=== PATIENT | male | born 1960 | race Caucasian/White ===

== ENCOUNTER 2018-08-11 14:44 | Inpatient (IN) | payer OTHER ==
[2018-08-11 16:29] LABS: ADD MAN DIFF? NO
[2018-08-11 16:35] LABS: BASOPHILS % 0.5 % (0.0-2.0); EOSINOPHILS # 0.2 10^3/ul (0.0-0.5); EOSINOPHILS % 2.1 % (0.0-7.0); HEMATOCRIT 22.6 % (42.0-52.0); LYMPHOCYTES # 2.8 10^3/ul (0.8-2.9); MEAN PLATELET VOLUME 10.1 fl (7.4-10.4); MONOCYTE # 0.4 10^3/ul (0.3-0.9); MONOCYTES % 5.8 % (0.0-11.0); NEUTROPHIL # 3.9 10^3/ul (1.6-7.5); NEUTROPHILS % 52.7 % (39.0-77.0); NUCLEATED RED BLOOD CELLS # 0.1 10^3/ul (0.0-0.0); NUCLEATED RED BLOOD CELLS% 0.7 /100WBC (0.0-0.0); PLATELET COUNT 214 10^3/UL (140-415); RED BLOOD COUNT 2.69 10^6/ul (4.70-6.10); RED CELL DISTRIBUTION WIDTH 16.7 % (11.5-14.5)
[2018-08-11 16:35] LABS: WHITE BLOOD COUNT 7.5 10^3/ul (4.8-10.8)
[2018-08-11 16:52] LABS: ANION GAP 11 (5-13); BLOOD UREA NITROGEN 9 mg/dl (7-20); CALCIUM 9.4 mg/dl (8.4-10.2); CARBON DIOXIDE 24 mmol/L (21-31); CHLORIDE 106 mmol/L (97-110); CREATININE 0.69 mg/dl (0.61-1.24); Estimated GFR > 60 mL/min (>60); GLUCOSE 99 mg/dl (70-220); POTASSIUM 3.3 mmol/L (3.5-5.1); SODIUM 141 mmol/L (135-144)
[2018-08-11 16:55] LABS: INR 0.86; PARTIAL THROMBOPLASTIN TIME 25.2 Sec (23.0-35.0); PROTIME 11.8 Sec (11.9-14.9); PT RATIO 0.9
[2018-08-11] MEDS: ASPIRIN 325 MG TAB PO (16:57)
[2018-08-11] MEDS: NITROGLYCERIN 2% 1 GM OINT PKT TD (16:58)
[2018-08-11 17:04] LABS: B-TYPE NATRIURETIC PEPTIDE 46 PG/ML (0-125); TROPONIN-I < 0.012 ng/ml (0.000-0.120)
[2018-08-11] MEDS: POTASSIUM CHLORIDE (SR) 20 MEQ TAB PO (17:37)
[2018-08-11] MEDS: SOD CHLORIDE 0.9% 250 ML IV* (18:53)
[2018-08-11 19:00] LABS: IRON 19 ug/dl (35-150)
[2018-08-11] MEDS ORDERED: NACL 0.9% 3 ML SYG IV (19:00)
[2018-08-11] MEDS ORDERED: ONDANSETRON 4 MG INJ IV (19:00)
[2018-08-11] MEDS ORDERED: ACETAMINOPHEN 325 MG TAB PO (19:00)
[2018-08-11 19:09] LABS: % IRON SATURATION 4 % SAT (22-52); TOTAL IRON BINDING CAPACITY 476 ug/dl (241-421)
[2018-08-11 19:44] LABS: FERRITIN 5.7 ng/ml (11.1-264.0)
[2018-08-11 20:14] LABS: FOLATE 5.2 ng/ml (2.8-20.0)
[2018-08-11] MEDS: NICOTINE (21 MG/24 HR) PATCH TRANSDERM (21:30)
[2018-08-11] MEDS: METOPROLOL 25 MG TAB PO (21:30)
[2018-08-11 22:38] LABS: CREATINE KINASE < 20 IU/L (23-200)
[2018-08-11 22:49] LABS: CK-MB < 0.22 ng/ml (0.0-2.4); TROPONIN-I < 0.012 ng/ml (0.000-0.120)
[2018-08-12] MEDS: PANTOPRAZOLE (EC) 40 MG TAB PO (05:30)
[2018-08-12] MEDS: PRASUGREL HYDROCHLORIDE 10 MG TABLET PO (08:32)
[2018-08-12] MEDS: ASPIRIN 81 MG TAB PO (08:32)
[2018-08-12] MEDS: NICOTINE (21 MG/24 HR) PATCH TRANSDERM (08:32)
[2018-08-12] MEDS: METOPROLOL 25 MG TAB PO ×2 (08:33→20:17)
[2018-08-12 08:59] LABS: ADD MAN DIFF? NO
[2018-08-12 09:01] LABS: WHITE BLOOD COUNT 7.6 10^3/ul (4.8-10.8)
[2018-08-12 09:01] LABS: BASOPHILS % 0.3 % (0.0-2.0); EOSINOPHILS # 0.2 10^3/ul (0.0-0.5); HEMATOCRIT 24.8 % (42.0-52.0); HEMOGLOBIN 7.7 g/dl (14.0-18.0); LYMPHOCYTES # 1.8 10^3/ul (0.8-2.9); LYMPHOCYTES % 23.7 % (15.0-51.0); MEAN CORPUSCULAR HEMOGLOBIN 26.5 pg (29.0-33.0); MEAN CORPUSCULAR VOLUME 85.2 fl (82.0-101.0); MONOCYTE # 0.4 10^3/ul (0.3-0.9); MONOCYTES % 5.4 % (0.0-11.0); NEUTROPHIL # 5.2 10^3/ul (1.6-7.5); NEUTROPHILS % 68.1 % (39.0-77.0); NUCLEATED RED BLOOD CELLS% 0.3 /100WBC (0.0-0.0); PLATELET COUNT 206 10^3/UL (140-415); RED BLOOD COUNT 2.91 10^6/ul (4.70-6.10); RED CELL DISTRIBUTION WIDTH 16.6 % (11.5-14.5)
[2018-08-12 09:32] LABS: ALANINE AMINOTRANSFERASE 22 IU/L (13-69); ALBUMIN 3.9 g/dl (3.3-4.9); ALKALINE PHOSPHATASE 63 IU/L (42-121); ANION GAP 4 (5-13); ASPARTATE AMINO TRANSFERASE 19 IU/L (15-46); BILIRUBIN,INDIRECT 0.3 mg/dl (0-1.1); BILIRUBIN,TOTAL 0.3 mg/dl (0.2-1.3); BLOOD UREA NITROGEN 8 mg/dl (7-20); CALCIUM 9.4 mg/dl (8.4-10.2); CARBON DIOXIDE 27 mmol/L (21-31); CHLORIDE 108 mmol/L (97-110); CHOL/HDL RATIO 3.6 RATIO; CHOLESTEROL 199 mg/dl (100-200); CREATININE 0.72 mg/dl (0.61-1.24); Estimated GFR > 60 mL/min (>60); GLUCOSE 96 mg/dl (70-220); HDL CHOLESTEROL 55 mg/dl (28-71); LDL CHOLESTEROL,CALCULATED 102 mg/dl; PHOSPHORUS 4.2 mg/dl (2.5-4.9); POTASSIUM 4.3 mmol/L (3.5-5.1); SODIUM 139 mmol/L (135-144); TOTAL PROTEIN 6.5 g/dl (6.1-8.1); TRIGLYCERIDES 209 mg/dl (0-149)
[2018-08-12 09:36] LABS: CREATINE KINASE < 20 IU/L (23-200)
[2018-08-12 09:38] LABS: CK-MB < 0.22 ng/ml (0.0-2.4); TROPONIN-I < 0.012 ng/ml (0.000-0.120)
[2018-08-12 10:31] LABS: HEMOGLOBIN A1C 5.1 % (0-5.9)
[2018-08-12] MEDS: SOD CHLORIDE 0.9% 250 ML IV* (11:36)
[2018-08-12 11:51] LABS: OCCULT BLOOD STOOL POSITIVE (NEGATIVE)
[2018-08-12 12:45] LABS: IMMEDIATE SPIN CROSSMATCH 1 2
[2018-08-12] MEDS: SOD FERRIC GLUC COMPLX 125 MG in SOD CHLORIDE 0.9% 100 ML IVPB (14:30)
[2018-08-12 14:46] LABS: TROPONIN-I < 0.012 ng/ml (0.000-0.120)
[2018-08-12 18:08] LABS: ADD MAN DIFF? NO
[2018-08-12 18:09] LABS: BASOPHILS % 0.4 % (0.0-2.0); EOSINOPHILS # 0.2 10^3/ul (0.0-0.5); HEMATOCRIT 27.1 % (42.0-52.0); HEMOGLOBIN 8.4 g/dl (14.0-18.0); LYMPHOCYTES # 2.1 10^3/ul (0.8-2.9); LYMPHOCYTES % 25.7 % (15.0-51.0); MEAN CORPUSCULAR HEMOGLOBIN 26.6 pg (29.0-33.0); MEAN CORPUSCULAR VOLUME 85.8 fl (82.0-101.0); MEAN PLATELET VOLUME 9.7 fl (7.4-10.4); MONOCYTE # 0.5 10^3/ul (0.3-0.9); MONOCYTES % 5.8 % (0.0-11.0); NEUTROPHIL # 5.3 10^3/ul (1.6-7.5); NEUTROPHILS % 65.7 % (39.0-77.0); NUCLEATED RED BLOOD CELLS% 0.2 /100WBC (0.0-0.0); PLATELET COUNT 193 10^3/UL (140-415); RED BLOOD COUNT 3.16 10^6/ul (4.70-6.10); RED CELL DISTRIBUTION WIDTH 15.9 % (11.5-14.5)
[2018-08-12 18:09] LABS: WHITE BLOOD COUNT 8.1 10^3/ul (4.8-10.8)
[2018-08-13] MEDS: PANTOPRAZOLE (EC) 40 MG TAB PO (05:35)
[2018-08-13 06:23] LABS: ADD MAN DIFF? NO
[2018-08-13 06:28] LABS: WHITE BLOOD COUNT 7.6 10^3/ul (4.8-10.8)
[2018-08-13 06:28] LABS: BASOPHILS % 0.3 % (0.0-2.0); EOSINOPHILS # 0.1 10^3/ul (0.0-0.5); EOSINOPHILS % 1.9 % (0.0-7.0); HEMATOCRIT 26.9 % (42.0-52.0); HEMOGLOBIN 8.5 g/dl (14.0-18.0); LYMPHOCYTES # 1.9 10^3/ul (0.8-2.9); MEAN CORPUSCULAR HEMOGLOBIN 26.9 pg (29.0-33.0); MEAN CORPUSCULAR HGB CONC 31.6 g/dl (32.0-37.0); MEAN CORPUSCULAR VOLUME 85.1 fl (82.0-101.0); MEAN PLATELET VOLUME 10.6 fl (7.4-10.4); MONOCYTE # 0.4 10^3/ul (0.3-0.9); MONOCYTES % 5.2 % (0.0-11.0); NEUTROPHIL # 5.1 10^3/ul (1.6-7.5); NEUTROPHILS % 67.1 % (39.0-77.0); NUCLEATED RED BLOOD CELLS% 0.3 /100WBC (0.0-0.0); PLATELET COUNT 191 10^3/UL (140-415); RED BLOOD COUNT 3.16 10^6/ul (4.70-6.10)
[2018-08-13 07:27] LABS: ANION GAP 5 (5-13); BLOOD UREA NITROGEN 7 mg/dl (7-20); CALCIUM 9.4 mg/dl (8.4-10.2); CARBON DIOXIDE 26 mmol/L (21-31); CHLORIDE 108 mmol/L (97-110); CREATININE 0.78 mg/dl (0.61-1.24); Estimated GFR > 60 mL/min (>60); GLUCOSE 96 mg/dl (70-220); MAGNESIUM 2.1 mg/dl (1.7-2.5); PHOSPHORUS 4.3 mg/dl (2.5-4.9); POTASSIUM 3.9 mmol/L (3.5-5.1); SODIUM 139 mmol/L (135-144)
[2018-08-13] MEDS: PRASUGREL HYDROCHLORIDE 10 MG TABLET PO (09:12)
[2018-08-13] MEDS: ASPIRIN 81 MG TAB PO (09:12)
[2018-08-13] MEDS: METOPROLOL 25 MG TAB PO ×2 (09:13→20:07)
[2018-08-13] MEDS: NICOTINE (21 MG/24 HR) PATCH TRANSDERM (09:14)
[2018-08-13] MEDS: REGADENOSON 0.4 MG/5 ML SYG (12:10)
[2018-08-13] MEDS: BISACODYL (EC) 5 MG TAB PO (16:35)
[2018-08-13] MEDS: MAGNESIUM CITRATE 300 ML BTL PO (17:34)
[2018-08-13] MEDS: POLYETHYLENE GLYCOL 3350 119 GM POWDER PO (18:21)
[2018-08-14] MEDS: PANTOPRAZOLE (EC) 40 MG TAB PO (05:06)
[2018-08-14] MEDS: POLYETHYLENE GLYCOL 3350 119 GM POWDER PO (05:06)
[2018-08-14 06:43] LABS: ADD MAN DIFF? NO
[2018-08-14 06:49] LABS: WHITE BLOOD COUNT 7.7 10^3/ul (4.8-10.8)
[2018-08-14 06:49] LABS: BASOPHILS % 0.4 % (0.0-2.0); EOSINOPHILS # 0.2 10^3/ul (0.0-0.5); EOSINOPHILS % 2.1 % (0.0-7.0); HEMATOCRIT 28.5 % (42.0-52.0); HEMOGLOBIN 8.8 g/dl (14.0-18.0); LYMPHOCYTES # 1.9 10^3/ul (0.8-2.9); LYMPHOCYTES % 24.2 % (15.0-51.0); MEAN CORPUSCULAR HEMOGLOBIN 26.3 pg (29.0-33.0); MEAN CORPUSCULAR HGB CONC 30.9 g/dl (32.0-37.0); MEAN CORPUSCULAR VOLUME 85.3 fl (82.0-101.0); MEAN PLATELET VOLUME 10.4 fl (7.4-10.4); MONOCYTE # 0.5 10^3/ul (0.3-0.9); MONOCYTES % 6.5 % (0.0-11.0); NEUTROPHIL # 5.1 10^3/ul (1.6-7.5); NEUTROPHILS % 66.3 % (39.0-77.0); PLATELET COUNT 191 10^3/UL (140-415); RED BLOOD COUNT 3.34 10^6/ul (4.70-6.10); RED CELL DISTRIBUTION WIDTH 16.3 % (11.5-14.5)
[2018-08-14 07:19] LABS: ANION GAP 8 (5-13); BLOOD UREA NITROGEN 8 mg/dl (7-20); CALCIUM 9.6 mg/dl (8.4-10.2); CARBON DIOXIDE 28 mmol/L (21-31); CHLORIDE 103 mmol/L (97-110); CREATININE 0.83 mg/dl (0.61-1.24); Estimated GFR > 60 mL/min (>60); GLUCOSE 87 mg/dl (70-220); POTASSIUM 4.1 mmol/L (3.5-5.1); SODIUM 139 mmol/L (135-144)
[2018-08-14] MEDS: BISACODYL (EC) 5 MG TAB PO (08:22)
[2018-08-14] MEDS: NICOTINE (21 MG/24 HR) PATCH TRANSDERM (08:25)
[2018-08-14] MEDS: METOPROLOL 25 MG TAB PO ×3 (09:00→20:31)
[2018-08-14] MEDS: ASPIRIN 81 MG TAB PO ×2 (09:00→13:32)
[2018-08-14] MEDS: PRASUGREL HYDROCHLORIDE 10 MG TABLET PO ×2 (09:00→13:32)
[2018-08-14] MEDS ORDERED: LIDOCAINE 2% (SDV) 5 ML INJ INJ (14:21)
[2018-08-14] MEDS: ATORVASTATIN 20 MG TAB PO (20:26)
[2018-08-15] MEDS: PANTOPRAZOLE (EC) 40 MG TAB PO (06:27)
[2018-08-15 07:22] LABS: ADD MAN DIFF? NO
[2018-08-15 07:24] LABS: WHITE BLOOD COUNT 8.3 10^3/ul (4.8-10.8)
[2018-08-15 07:24] LABS: BASOPHILS % 0.4 % (0.0-2.0); EOSINOPHILS # 0.1 10^3/ul (0.0-0.5); EOSINOPHILS % 1.5 % (0.0-7.0); HEMATOCRIT 29.1 % (42.0-52.0); LYMPHOCYTES # 1.7 10^3/ul (0.8-2.9); LYMPHOCYTES % 20.6 % (15.0-51.0); MEAN CORPUSCULAR HEMOGLOBIN 26.4 pg (29.0-33.0); MEAN CORPUSCULAR HGB CONC 30.9 g/dl (32.0-37.0); MEAN CORPUSCULAR VOLUME 85.3 fl (82.0-101.0); MEAN PLATELET VOLUME 10.5 fl (7.4-10.4); MONOCYTE # 0.5 10^3/ul (0.3-0.9); MONOCYTES % 6.3 % (0.0-11.0); NEUTROPHIL # 5.9 10^3/ul (1.6-7.5); NEUTROPHILS % 70.7 % (39.0-77.0); PLATELET COUNT 207 10^3/UL (140-415); RED BLOOD COUNT 3.41 10^6/ul (4.70-6.10); RED CELL DISTRIBUTION WIDTH 16.5 % (11.5-14.5)
[2018-08-15] MEDS: PROPOFOL 40 ML (07:43)
[2018-08-15 07:50] LABS: ANION GAP 5 (5-13); BLOOD UREA NITROGEN 11 mg/dl (7-20); CALCIUM 9.5 mg/dl (8.4-10.2); CARBON DIOXIDE 27 mmol/L (21-31); CHLORIDE 105 mmol/L (97-110); Estimated GFR > 60 mL/min (>60); GLUCOSE 99 mg/dl (70-220); MAGNESIUM 2.3 mg/dl (1.7-2.5); PHOSPHORUS 4.6 mg/dl (2.5-4.9); POTASSIUM 4.1 mmol/L (3.5-5.1); SODIUM 137 mmol/L (135-144)
[2018-08-15] MEDS: METOPROLOL 25 MG TAB PO (08:11)
[2018-08-15] MEDS: PRASUGREL HYDROCHLORIDE 10 MG TABLET PO (08:11)
[2018-08-15] MEDS: ASPIRIN 81 MG TAB PO (08:11)
[2018-08-15] MEDS: NICOTINE (21 MG/24 HR) PATCH TRANSDERM (09:32)
== END 2018-08-15 14:22 | disposition home or self-care (01) | DRG 313 ==
LOC: E/R 14:44 → TEL 17:50
PROC: 0DJ08ZZ Inspection of Upper Intestinal Tract, Via Natural or Artificial Opening Endoscopic (ICD-10-PCS; principal; 2018-08-14 15:00)
PROC: 0DBK8ZX Excision of Ascending Colon, Via Natural or Artificial Opening Endoscopic, Diagnostic (ICD-10-PCS; 2018-08-14 15:00)
PROC: 0DBN8ZX Excision of Sigmoid Colon, Via Natural or Artificial Opening Endoscopic, Diagnostic (ICD-10-PCS; 2018-08-14 15:00)
PROC: 30233N1 Transfusion of Nonautologous Red Blood Cells into Peripheral Vein, Percutaneous Approach (ICD-10-PCS; 2018-08-14 15:15)
DX: R07.2 Precordial pain (principal); D64.9 Anemia, unspecified; F17.200 Nicotine dependence, unspecified, uncomplicated; I25.2 Old myocardial infarction; Z95.5 Presence of coronary angioplasty implant and graft; R19.5 Other fecal abnormalities; I25.10 Atherosclerotic heart disease of native coronary artery without angina pectoris; E78.5 Hyperlipidemia, unspecified; K63.5 Polyp of colon; D12.2 Benign neoplasm of ascending colon; I10 Essential (primary) hypertension; E87.6 Hypokalemia; Z79.82 Long term (current) use of aspirin; Z79.02 Long term (current) use of antithrombotics/antiplatelets; K26.9 Duodenal ulcer, unspecified as acute or chronic, without hemorrhage or perforation; K29.70 Gastritis, unspecified, without bleeding
CPT/HCPCS: 36415; 36430; 71045; 78452; 80048; 80053; 80061; 82270; 82550; 82553; 82607; 82728; 82746; 83036; 83540; 83735; 83880; 84100; 84443; 84484; 85025; 85610; 85730; 86850; 86900; 86901; 86920; 88305; 93005; 93017; 93306; 99285-25